=== PATIENT | male | born 1985 | race Caucasian/White ===

== ENCOUNTER → 2021-10-17 10:41 | Outpatient (CLI) | payer OTHER, SELFPAY ==
--- NOTE | 2021-10-17 10:43 | DI.RAD.S_ITS ---
PROCEDURE: XR ANKLE LT MIN 3V INDICATIONS: L I ankle pain TECHNIQUE: 3 views of the ankle were acquired. COMPARISON: None. FINDINGS: Bones: No fractures or dislocations. Ankle mortise is normally aligned. No suspicious bony lesions. Soft tissues: No tibiotalar joint effusion. Achilles tendon appears normal. IMPRESSION: No significant abnormality. Dictated by: Jose Hein M.D. on 10/17/2021 at 11:00 Approved by: Jose Hein M.D. on 10/17/2021 at 11:01
== END ==
PROVIDERS: Family Provider Family Medicine; Referring Provider Physician Assistant; Visit Provider Nurse Practitioner Family
DX: S93.402A Sprain of unspecified ligament of left ankle, initial encounter (principal); X58.XXXA Exposure to other specified factors, initial encounter
CPT/HCPCS: 73610

== ENCOUNTER 2023-11-02 18:51 | Emergency (ER) | payer BC, SELFPAY ==
[2023-11-02 18:56] VITALS: BP 136/86; PULSE 75; RESP 18; TEMP 36.5; O2SAT 97; BMI 38.0
--- NOTE | 2023-11-02 19:01 | DI.RAD.S_ITS ---
PROCEDURE: XR CHEST 1V INDICATIONS: chest pain TECHNIQUE: One view of the chest was acquired. COMPARISON: None. FINDINGS: Surgical changes and devices: None. Lungs and pleura: Lungs are clear. No pleural effusions or pneumothorax. Mediastinum: Mediastinal contours appear normal. Heart size is normal. Bones and chest wall: No suspicious bony lesions. Overlying soft tissues appear unremarkable. IMPRESSION: No acute cardiopulmonary abnormality is seen. Dictated by: Enoch Watkins M.D. on 11/02/2023 at 19:36 Approved by: Enoch Watkins M.D. on 11/02/2023 at 19:36
[2023-11-02 19:23] LABS: Add Manual Diff / Slide Review NO; Basophils Absolute Auto 100 /uL (0-100); Basophils Percent Auto 0.8 % (0-2); Eosinophils Absolute Auto 300 /uL (0-450); Eosinophils Percent Auto 4.5 % (2-4); Hematocrit 45.1 % (41-53); Hemoglobin 15.3 g/dL (13.5-17.5); Lymphocytes Absolute Auto 2000 /uL (1100-4500); Lymphocytes Percent Auto 29.2 % (25-40); Mean Corpuscular HGB Conc 33.8 % (30-36); Mean Corpuscular Hemoglobin 29.6 PG (26-34); Mean Corpuscular Volume 87.3 fL (80-100); Monocytes Absolute Auto 800 /uL (0-900); Neutrophils Absolute Auto 3700 /uL (1500-7000); Neutrophils Percent Auto 53.5 % (50-75); Platelet Count 230 X10^3/uL (150-400); Red Blood Cell Count 5.17 X10^6/uL (4.5-5.9); Red Cell Distribution Width 13.3 % (11.6-14.8)
[2023-11-02 19:26] VITALS: PULSE 69; RESP 16; O2SAT 97
[2023-11-02 19:30] VITALS: BP 136/82; PULSE 74; RESP 13; O2SAT 98
[2023-11-02 19:32] LABS: Prothrombin Time 11.7 SECONDS (9.4-12.5)
[2023-11-02 19:34] LABS: PTT Partial Thromboplastin Tim 33 SECONDS (25.1-36.5)
[2023-11-02 19:40] LABS: Alanine Aminotransferase 49 IU/L (<50); Albumin 4.3 g/dL (3.5-5.0); Albumin Globulin Ratio 1.2 (1.0-2.8); Alkaline Phosphatase 56 U/L (38-126); Aspartate Aminotransferase 32 IU/L (17-59); BUN Creatinine Ratio 13.2 (6-22); Blood Urea Nitrogen 14 mg/dL (9-20); Carbon Dioxide 29 mmol/L (22-32); Chloride 101 mmol/L (98-107); Creatine Kinase 191 U/L (55-170); Estimated Glomerular Filt Rate > 60 mL/min (>60); Globulin 3.5 g/dL (1.7-4.1); Glucose 118 mg/dL (70-100); HEMOLYSIS < 15 (0-50); Lipase 100 U/L (23-300); Magnesium 1.7 mg/dL (1.6-2.3); Potassium 3.9 mmol/L (3.4-5.1); Sodium 137 mmol/L (137-145); Total Protein 7.8 g/dL (6.3-8.2)
[2023-11-02 19:51] LABS: Troponin I < 0.012 ng/mL (0.01-0.034)
[2023-11-02 20:00] VITALS: BP 132/84; PULSE 72; RESP 13; O2SAT 97
--- NOTE | 2023-11-02 20:17 | ED_ITS ---
HPI - Chest Pain General Chief Complaint: Chest Pain Stated Complaint: [facility] SENT IRREGULAR HEART RATE NUMBNESS DIZZY Time Seen by Provider: 11/02/23 20:13 Source: patient Mode of arrival: Ambulatory History of Present Illness HPI narrative: Patient is a 38-year-old male without significant past medical history presenting today with palpitations. He reports that he was sitting at work at his desk when his heart told him he was in AFib his heart rate was in the 130s. He felt very sweaty some palpitations some shortness of breath. It lasted for about 20 minutes and then went away. This is never happened to him before. He denies any significant caffeine intake. He does report that he does binge drink alcohol about once a month he last drank alcohol 5 days ago. He has not gone through withdrawals before. No abdominal pain nausea or vomiting. He does not have a primary care provider. Related Data Allergies Allergy/AdvReac Type Severity Reaction Status Date / Time bee venom protein (honey bee) AdvReac swelling Verified 11/02/23 18:56 of site Patient History Social History Smoking Status: Current every day smoker Smoking Status: Current every day smoker alcohol intake frequency: a few times a month Substance Use Type: does not use Exam Initial Vital Signs Initial Vital Signs: Vital Signs Temperature 97.7 F 11/02/23 18:56 Pulse Rate 75 11/02/23 18:56 Respiratory Rate 18 11/02/23 18:56 Blood Pressure 136/86 11/02/23 18:56 Pulse Oximetry 97 11/02/23 18:56 Oxygen Delivery Method Room Air 11/02/23 18:56 GENERAL: Alert pleasant well-appearing 38 year and in no acute distress. HEENT: Head atraumatic,EOMI, pupils reactive, face symmetric, moist mucous membranes CARDIOVASCULAR: Regular rate and rhythm without murmurs, rubs or gallops. RESPIRATORY: Breath sounds equal bilaterally, no wheezes rales or rhonchi. ABDOMEN: Soft, nontender. Normoactive bowel sounds all 4 quadrants. No guarding or rebound. EXTREMITIES: Normal range of motion, no clubbing or edema. Neurovascularly intact NEUROLOGICAL: Alert and oriented x4.Normal gait and speech. SKIN: Warm, dry, no laceration, no petechiae, no rashes or lesions. Course Orders Ordered: ED Orders 11/02/23 19:01 XR chest 1V Stat EKG-12 Lead Stat 11/02/23 19:07 Complete Blood Count AUTO DIFF Stat Comprehensive Metabolic Panel Stat Lipase Stat Magnesium Stat PTT Partial Thromboplastin Martin Stat Prothrombin Time INR Stat Troponin & CK Cardiac Panel Stat Discontinued Medications Aspirin (Aspirin 81 Mg Chew Tab) 324 mg PO NOW ONE Stop: 11/02/23 19:02 Last Admin: 11/02/23 20:06 Dose: Not Given Documented By: KF Vital Signs Vital signs: Vital Signs - 8 hr 11/02/23 18:56 11/02/23 19:26 11/02/23 19:30 Temperature 97.7 F Pulse Rate 75 69 Respiratory Rate 18 16 Blood Pressure 136/86 136/82 Pulse Oximetry 97 97 Oxygen Delivery Method Room Air 11/02/23 19:30 11/02/23 20:00 11/02/23 20:00 Temperature Pulse Rate 74 72 Respiratory Rate 13 13 Blood Pressure 132/84 Pulse Oximetry 98 97 Oxygen Delivery Method Room Air 11/02/23 20:30 11/02/23 20:30 11/02/23 21:00 Temperature Pulse Rate 74 Respiratory Rate 13 Blood Pressure 134/88 135/89 Pulse Oximetry 96 Oxygen Delivery Method 11/02/23 21:00 Temperature Pulse Rate 66 Respiratory Rate 12 Blood Pressure Pulse Oximetry 97 Oxygen Delivery Method MDM - Chest Pain Lab Data 11/02/23 19:07 11/02/23 19:07 Labs: Lab Results 11/02/23 Range/Units 19:07 WBC 7.0 (4.5-11.0) X10^3/uL RBC 5.17 (4.5-5.9) X10^6/uL Hgb 15.3 (13.5-17.5) g/dL Hct 45.1 (41-53) % MCV 87.3 (80-100) fL MCH 29.6 (26-34) PG MCHC 33.8 (30-36) % RDW 13.3 (11.6-14.8) % Plt Count 230 (150-400) X10^3/uL Neut % (Auto) 53.5 (50-75) % Lymph % (Auto) 29.2 (25-40) % [place] % (Auto) 12.0 (3-14) % Eos % (Auto) 4.5 H (2-4) % Baso % (Auto) 0.8 (0-2) % Neut # (Auto) 3700 (3042-6383) /uL Lymph # (Auto) 2000 (1022-2124) /uL [place] # (Auto) 800 (0-900) /uL Eos # (Auto) 300 (0-450) /uL Baso # (Auto) 100 (0-100) /uL PT 11.7 (9.4-12.5) SECONDS INR 1.0 (0.9-1.3) APTT 33 (25.1-36.5) SECONDS Sodium 137 (137-145) mmol/L Potassium 3.9 (3.4-5.1) mmol/L Chloride 101 (98-107) mmol/L Carbon Dioxide 29 (22-32) mmol/L BUN 14 (9-20) mg/dL Creatinine 1.06 (0.66-1.25) mg/dL Estimated GFR > 60 (>60) mL/min BUN/Creatinine Ratio 13.2 (6-22) Glucose 118 H (70-100) mg/dL Calcium 10.0 (8.4-10.2) mg/dL Magnesium 1.7 (1.6-2.3) mg/dL Total Bilirubin 1.0 (0.2-1.3) mg/dL AST 32 (17-59) IU/L ALT 49 (<50) IU/L Alkaline Phosphatase 56 (38-126) U/L Total Creatine Kinase 191 H (55-170) U/L Troponin I < 0.012 (0.01-0.034) ng/mL Total Protein 7.8 (6.3-8.2) g/dL Albumin 4.3 (3.5-5.0) g/dL Globulin 3.5 (1.7-4.1) g/dL Albumin/Globulin Ratio 1.2 (1.0-2.8) Lipase 100 (23-300) U/L Imaging Data Chest x-ray: Radiologist's Impression: PROCEDURE: XR CHEST 1V INDICATIONS: chest pain TECHNIQUE: One view of the chest was acquired. COMPARISON: None. FINDINGS: Surgical changes and devices: None. Lungs and pleura: Lungs are clear. No pleural effusions or pneumothorax. Mediastinum: Mediastinal contours appear normal. Heart size is normal. Bones and chest wall: No suspicious bony lesions. Overlying soft tissues appear unremarkable. IMPRESSION: No acute cardiopulmonary abnormality is seen. Dictated by: Enoch Watkins M.D. on 11/02/2023 at 19:36 ECG Data Interpretation: Normal sinus rhythm rate 69 DE 184 QRS [address] changes T-wave inversions MDM Narrative Medical decision making narrative: Patient 38-year-old male who presents today with heart palpitations and elevated heart rate. It is possible he had a episode of paroxysmal AFib versus an slow SVT. He is now in sinus rhythm blood work has been reviewed and overall reassuring no electrolyte abnormality or anemia. He does binge drink alcohol however that was 5 days ago, I do not think the alcohol related to this possible episode of AFib although we did talk about holiday heart. He has not had any withdrawal symptoms he reports he does not have daily alcohol. Chest x-ray reviewed EKG reviewed At this time encourage outpatient follow-up with Holter monitor and return if symptoms return. Discharge Plan Departure Patient Disposition: Home Clinical Impression: Palpitation Instructions: DI for Palpitations Activity Restrictions/Additional Instructions: *You have been diagnosed with palpitations *What to do: At this time I do recommend that you do not drink alcohol. Please discuss with primary care provider about a Holter monitor. If in the meantime this should happen again please return to nearest emergency *Continue to take medications as directed *Follow up with your primary care provider in 2-3 days or call [phone] *Return to ER if you should have palpitations dizziness lightheadedness shortness of or any new, worsening or concerning symptoms Referrals: [facility],Doctor, [Primary Care Provider] - Stand Alone Forms: Patient Portal/API
[2023-11-02 20:30] VITALS: BP 134/88; PULSE 74; RESP 13; O2SAT 96
[2023-11-02 21:00] VITALS: BP 135/89; PULSE 66; RESP 12; O2SAT 97
== END 2023-11-02 21:13 | disposition home or self-care (01) ==
PROVIDERS: Emergency Provider Emergency Medicine; Family Provider Family Medicine
DX: R00.2 Palpitations (principal); R07.9 Chest pain, unspecified
CPT/HCPCS: 36415; 71045; 80053; 82550; 83690; 83735; 84484; 85025; 85610; 85730; 93005; 93010; 99283; 99284

== ENCOUNTER → 2024-10-07 17:13 | Outpatient (CLI) | payer BC, SELFPAY ==
[2024-10-07 18:26] LABS: Add Manual Diff / Slide Review NO; Basophils Absolute Auto 100 /uL (0-100); Basophils Percent Auto 0.7 % (0-2); Eosinophils Absolute Auto 300 /uL (0-450); Hematocrit 48.3 % (41-53); Hemoglobin 16.2 g/dL (13.5-17.5); Lymphocytes Absolute Auto 1800 /uL (1100-4500); Lymphocytes Percent Auto 25.5 % (25-40); Mean Corpuscular HGB Conc 33.6 % (30-36); Mean Corpuscular Hemoglobin 29.9 PG (26-34); Mean Corpuscular Volume 88.9 fL (80-100); Monocytes Absolute Auto 700 /uL (0-900); Monocytes Percent Auto 10.1 % (3-14); Neutrophils Absolute Auto 4200 /uL (1500-7000); Neutrophils Percent Auto 59.7 % (50-75); Platelet Count 251 X10^3/uL (150-400); Red Blood Cell Count 5.44 X10^6/uL (4.5-5.9); Red Cell Distribution Width 13.3 % (11.6-14.8)
[2024-10-07 18:49] LABS: Cholesterol 205 mg/dL (140-199); HDL Cholesterol 51 mg/dL (40-60); LDL Cholesterol Calculated 117 mg/dL (<100); Triglycerides 186 mg/dL (35-150)
== END ==
LOC: LAB 17:14
PROVIDERS: Family Provider Family Medicine; PCP Family Medicine; Referring Provider Family Medicine; Visit Provider Family Medicine
DX: Z13.220 Encounter for screening for lipoid disorders (principal); R73.03 Prediabetes; K13.21 Leukoplakia of oral mucosa, including tongue; Z82.49 Family history of ischemic heart disease and other diseases of the circulatory system
CPT/HCPCS: 36415; 80061; 83036; 85025